=== PATIENT | male | born 1970 | race Caucasian/White ===

== ENCOUNTER 2016-07-17 19:04 | Emergency (ER) | payer OTHER ==
[2016-07-17 19:56] VITALS: BP 115/74; PULSE 85; RESP 20; TEMP 97.9
[2016-07-17] MEDS ORDERED: METOCLOPRAMIDE 10 MG TAB PO STA (20:09)
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
--- NOTE | 2016-07-17 20:50 | CT ---
EXAMINATION TYPE: CT brain wo con DATE OF EXAM: 07/17/2016 8:39 PM COMPARISON: NONE INDICATION: Pt states of dizziness with falls since yesterday. DLP: 1013.0 mGycm, Automated exposure control for dose reduction was used. CONTRAST: None CT of the brain is performed utilizing 3 mm thick sections through the posterior fossa and 3 mm thick sections through the remaining calvarium. Study is performed within 24 hours of arrival to the hosp [facility]. No abnormal hyperdensity is present to suggest an acute intracranial hemorrhage. No mass lesion is evident. No acute infarcts are evident. Ventricles and sulci are appropriate for the patient age. Scattered mucosal thickening is throughout the paranasal sinuses. IMPRESSIONS: 1. No acute intracranial process. 2. Paranasal sinus mucosal thickening.
== END 2016-07-17 21:38 | disposition home or self-care (01) ==
LOC: EC 19:04
DX: R42 Dizziness and giddiness (principal); Z79.899 Other long term (current) drug therapy; Z88.0 Allergy status to penicillin; Z91.041 Radiographic dye allergy status; F17.200 Nicotine dependence, unspecified, uncomplicated
CPT/HCPCS: 70450; 99284

== ENCOUNTER → 2016-08-02 | Outpatient (CLI) | payer OTHER ==
--- NOTE | 2016-08-02 21:19 | MR ---
EXAMINATION TYPE: MR lumbar spine wo con DATE OF EXAM: 08/02/2016 8:32 PM COMPARISON: NONE HISTORY: neck and low back pain ordered WITHOUT contrast TECHNIQUE: T1 and T2 axial and sagittal images of the lumbar spine are submitted. FINDINGS: There is no abnormal signal seen within the visualized spinal cord or paraspinal soft tissu es. At T12-L1 there are severe degenerative disc disease with discogenic marrow changes. No disc herniati on or canal stenosis. Neural foramina patent. At L1-2 there is no disc herniation or canal stenosis. No foraminal encroachment. At L2-3 there is no disc herniation or canal stenosis. No foraminal encroachment At L3-4 there is facet arthropathy and mild disc desiccation. There is no foraminal encroachment or c anal stenosis. No focal herniation. At L4-5 there is facet arthropathy. No disc herniation or canal stenosis. No foraminal encroachment. At L5-S1 there is facet arthropathy but no disc herniation or canal stenosis. No foraminal encroachme nt. IMPRESSION: 1. Degenerative disc disease L3-L4 but no canal stenosis, disc herniation or foraminal encroachment a t any of the visualized levels 2. Severe degenerative disc disease T12-L1. EXAMINATION TYPE: MR cervical spine wo con DATE OF EXAM: 08/02/2016 8:32 PM COMPARISON: 04/08/2015 HISTORY: neck and low back pain T1 sagittal and coronal, T2 sagittal, and gradient echo axial views of the cervical spine are submitt ed. The cranial cervical junction is preserved. There is no abnormal signal seen within the spinal cord or paraspinal soft tissues. C2-C3: No evidence for degenerative disc disease. No disc bulge/herniation or protrusion. No Canal st enosis. Foramina are patent bilaterally. Uncovertebral joint hypertrophy noted bilaterally. C3-C4: Disc bulging capped by spur is stable with a slightly greater left paracentral component. Bila teral facet arthropathy and uncovertebral joint hypertrophy contribute to mild bilateral foraminal en croachment greater on the right. C4-C5: No evidence for degenerative disc disease. No disc bulge/herniation or protrusion. No Canal st enosis. Bilateral facet arthropathy and uncovertebral joint hypertrophy result in mild bilateral fora saroj encroachment C5-C6: Postoperative changes of anterior cervical discectomy and fusion. Anterior fixation plate is i n place as well as intervertebral spacer. Alignment is anatomic. Posterior hypertrophic changes ident ified with effacement of the ventral thecal sac. Thecal sac constriction without canal stenosis. Hype rtrophic changes of the uncinate processes resulting in bilateral foraminal encroachment. C6-C7: Postoperative changes of anterior cervical discectomy and fusion. Intervertebral spacer is in place. Alignment is anatomic. Posterior hypertrophic changes identified with effacement of the ventra l thecal sac. Thecal sac constriction without canal stenosis. Hypertrophic changes of the uncinate pr ocesses resulting in bilateral foraminal encroachment. C7-T1: No evidence for degenerative disc disease. No disc bulge/herniation or protrusion. No Canal st enosis. Foramina are patent bilaterally. Cervical segments are intact. There is normal alignment. Cer vical spinal cord is of normal signal. Craniovertebral junction relationships are within normal limit s. No pathologic enhancement identified. IMPRESSION: 1. Postoperative changes at C5-C6 and C6-C7 consistent with ACDF. Normal postoperative alignment. Hyp ertrophic changes with bilateral foraminal encroachment as discussed. Disc bulging centrally at C6-C7 capped by spur with uncovertebral joint hypertrophy appears stable. 2. Disc bulge at C3-C4 appears slightly greater paracentrally to the left on today's exam with bilate ral foraminal encroachment. Secondary to uncovertebral joint hypertrophy encroachment is greater on t he right.
== END | disposition home or self-care (01) ==
LOC: RADMRIMAIN 19:27
PROVIDERS: ATTEND Nurse Practitioner Acute Care
DX: M51.36 Other intervertebral disc degeneration, lumbar region (principal); M50.21 Other cervical disc displacement, high cervical region; Z98.890 Other specified postprocedural states
CPT/HCPCS: 72141; 72148

== ENCOUNTER 2016-09-07 14:21 | Emergency (ER) | payer OTHER ==
[2016-09-07 14:41] VITALS: BP 121/78; PULSE 67; RESP 16; TEMP 97.7
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
== END 2016-09-07 15:54 | disposition home or self-care (01) ==
LOC: EC 14:21
DX: H05.011 Cellulitis of right orbit (principal); F17.200 Nicotine dependence, unspecified, uncomplicated; Z79.899 Other long term (current) drug therapy; Z91.041 Radiographic dye allergy status; Z88.0 Allergy status to penicillin; Z91.030 Bee allergy status; Z91.013 Allergy to seafood
CPT/HCPCS: 99283

== ENCOUNTER 2016-09-12 18:43 | Emergency (ER) | payer OTHER ==
[2016-09-12] MEDS ORDERED: FAMOTIDINE 20 MG/2 ML VIAL IV STA (19:31)
[2016-09-12] MEDS ORDERED: SODIUM CHLORIDE 0.9% 1,000 ML IV ONE (19:31)
[2016-09-12] MEDS ORDERED: predniSONE 20 MG TAB PO STA (19:31)
[2016-09-12 19:57] LABS: Basophils % (A) 1 %; CH 31.9; CHCM 34.6; Eosinophils # (A) 0.2 k/uL (0-0.7); Eosinophils % (A) 3 %; HCT 47.3 % (39.0-53.0); HDW 2.52; HGB 15.9 gm/dL (13.0-17.5); Luc # (Auto) 0.29; Luc % (Auto) 3; Lymphocytes # (A) 2.3 k/uL (1.0-4.8); Lymphocytes % (A) 27 %; MCH 31.2 pg (25.0-35.0); MCHC 33.7 g/dL (31.0-37.0); MCV 92.8 fL (80.0-100.0); Mean Platelet Volume 7.9; Monocytes # (A) 0.3 k/uL (0-1.0); Monocytes % (A) 4 %; Neutrophils # (A) 5.5 k/uL (1.3-7.7); Neutrophils % (A) 63 %; RDW 13.1 % (11.5-15.5); WBC 8.7 k/uL (3.8-10.6); WBC (Perox) 8.58
[2016-09-12 20:06] LABS: ALT 34 U/L (21-72); AST 23 U/L (17-59); Alkaline Phosphatase 78 U/L (38-126); Anion Gap 10 mmol/L; Blood Urea Nitrogen 13 mg/dL (9-20); Calcium 9.5 mg/dL (8.4-10.2); Carbon Dioxide 26 mmol/L (22-30); Chloride 105 mmol/L (98-107); Glucose 85 mg/dL (74-99); Non-African American GFR(MDRD) >60 (>60 ml/min/1.73 sqM); Potassium 4.4 mmol/L (3.5-5.1); Sodium 141 mmol/L (137-145); Total Bilirubin 0.5 mg/dL (0.2-1.3); Total Protein 7.1 g/dL (6.3-8.2)
--- NOTE | 2016-09-12 20:20 | CT ---
EXAMINATION TYPE: CT facial bones wo con DATE OF EXAM: 09/12/2016 8:09 PM COMPARISON: CT brain July 17, 2016 HISTORY: Pt states of facial swelling, No known injury. Major swelling to orbital area. CT DLP: 697.6 mGycm Automated exposure control for dose reduction was used. TECHNIQUE: CT scan of the facial bones is performed without contrast, axial images are obtained, sean nal reformatted images are also reviewed. FINDINGS: There is patchy ill-defined fluid in the right maxillary sinus. Remainder paranasal sinuses are clear. There is no acute facial bone fracture or dislocation seen. The globes are intact bilaterally. Intrac onal fat is preserved bilaterally. Visualized portion of brain parenchyma is unremarkable. No well-fo rmed fluid collection or abscess is seen. IMPRESSION: Acute right maxillary sinusitis otherwise unremarkable study.
[2016-09-12] MEDS ORDERED: FLUORESCEIN STRIPS 1 MG STRIP BOTH EYES ONE (20:57)
[2016-09-12] MEDS ORDERED: PROPARACAINE 0.5% OPHTH DROPS 15 ML BTL BOTH EYES STA (20:57)
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
[2016-09-12 21:28] VITALS: BP 127/82; PULSE 62; RESP 18; TEMP 97
== END 2016-09-12 21:28 | disposition home or self-care (01) ==
LOC: EC 18:43
DX: J30.9 Allergic rhinitis, unspecified (principal); J01.00 Acute maxillary sinusitis, unspecified; L50.9 Urticaria, unspecified; Z88.0 Allergy status to penicillin; Z91.030 Bee allergy status; Z91.041 Radiographic dye allergy status; Z91.013 Allergy to seafood; F17.200 Nicotine dependence, unspecified, uncomplicated
CPT/HCPCS: 96374; 96361; 99284; 36415; 80053; 85025; 70486; J7512

== ENCOUNTER 2016-10-10 16:16 | Emergency (ER) | payer OTHER ==
[2016-10-10 16:43] VITALS: PULSE 70
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
--- NOTE | 2016-10-10 17:48 | XR ---
EXAMINATION TYPE: XR cervical spine comp DATE OF EXAM: 10/10/2016 5:43 PM COMPARISON: 10/31/2014 HISTORY: Neck pain TECHNIQUE: 5 views FINDINGS: Cervical vertebra have normal alignment. There is anterior fusion at C5-6. There is a disc prosthesis at C6-7. Posterior elements are intact. Neural foramina are fairly well maintained. Atlant oaxial facet joint is normal. IMPRESSION: Previous surgery. No acute abnormality. No change.
[2016-10-10 18:20] VITALS: BP 120/70; RESP 16; TEMP 97.8
== END 2016-10-10 18:19 | disposition home or self-care (01) ==
LOC: EC 16:16
DX: M54.2 Cervicalgia (principal); R42 Dizziness and giddiness; F17.200 Nicotine dependence, unspecified, uncomplicated; Z79.899 Other long term (current) drug therapy; Z88.0 Allergy status to penicillin; Z91.013 Allergy to seafood; Z91.030 Bee allergy status; Z91.038 Other insect allergy status; Z91.041 Radiographic dye allergy status; Z98.890 Other specified postprocedural states
CPT/HCPCS: 72050; 99283

== ENCOUNTER 2016-10-13 18:06 | Emergency (ER) | payer OTHER ==
[2016-10-13 19:27] VITALS: RESP 18
[2016-10-13] MEDS ORDERED: FAMOTIDINE 20 MG/2 ML VIAL IV STA (20:20)
[2016-10-13] MEDS ORDERED: diphenhydrAMINE 50 MG/ML 1 ML VIAL IVP STA (20:20)
[2016-10-13] MEDS ORDERED: methylPREDNISolone SOD SUCCI 125 MG/2 ML VIAL IV STA (20:20)
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
[2016-10-13] MEDS ORDERED: HYDROcodone/APAP 5-325MG 1 EACH TAB PO STA (20:42)
[2016-10-13 22:12] VITALS: BP 119/68; PULSE 63; TEMP 97.9
== END 2016-10-13 22:12 | disposition home or self-care (01) ==
LOC: EC 18:06
DX: R20.0 Anesthesia of skin (principal); R60.9 Edema, unspecified; T50.995A Adverse effect of other drugs, medicaments and biological substances, initial encounter; F17.200 Nicotine dependence, unspecified, uncomplicated; Z79.899 Other long term (current) drug therapy; Z91.041 Radiographic dye allergy status; Z88.8 Allergy status to other drugs, medicaments and biological substances; Z88.0 Allergy status to penicillin; Z91.013 Allergy to seafood; Z91.030 Bee allergy status
CPT/HCPCS: 99283; 96374; 96375 ×2; J1200; J2930

== ENCOUNTER → 2016-11-05 | Outpatient (CLI) | payer OTHER ==
--- NOTE | 2016-11-05 13:10 | CT ---
EXAMINATION TYPE: CT cervical spine wo con DATE OF EXAM: 11/05/2016 12:44 PM COMPARISON: Previous study dated 11/26/2013. HISTORY: Post procedure pain and swelling-left side neck/shoulder swelling CT DLP: 514.6 mGycm Automated exposure control for dose reduction was used. TECHNIQUE: CT scan of the cervical spine is obtained without contrast, axial images are obtained, sa gittal and coronal reformatted images are also reviewed. FINDINGS: There are mild1 emphysematous changes throughout the visualized portions of the lungs. There is mucoperiosteal thickening involving the right maxillary sinus. Prevertebral soft tissues lazaro ear unremarkable. There is been an ACDF at C5-6 and vascular fusion at C6-7. This appears unchanged from previous. Alig nment remains normal. Atlantoaxial relationships are normal. No definite discal protrusion is seen. T he uncovertebral joints at C5-6 are fused. There is no significant facet arthropathy. There is some shotty posterior triangle and deep cervical adenopathy. There are no pathologically enl arged lymph nodes. There is stranding in the soft tissues posteriorly on the left as well as posterior laterally on the left. No hematoma or abscess is seen. IMPRESSION: 1. POSTSURGICAL CHANGE. 2. SHOTTY CERVICAL ADENOPATHY. 3. SOFT TISSUE STRANDING IN THE POSTERIOR LATERAL AND POSTERIOR ASPECT OF THE NECK.
== END | disposition home or self-care (01) ==
LOC: RADCTMAIN 12:21
PROVIDERS: ATTEND Physician Assistant
DX: R59.0 Localized enlarged lymph nodes (principal); M79.89 Other specified soft tissue disorders; G89.18 Other acute postprocedural pain; Z88.0 Allergy status to penicillin; Z91.013 Allergy to seafood
CPT/HCPCS: 72125

== ENCOUNTER 2017-09-19 16:31 | Inpatient (IN) | payer MEDICAID, OTHER ==
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
[2017-09-19 17:35] LABS: Amphetamine Screen,Urine Not Detected (NotDetected); Barbiturate Screen,Urine Not Detected (NotDetected); Benzodiazepines Screen,Urine Not Detected (NotDetected); Cocaine Screen,Urine Not Detected (NotDetected); Methadone Screen, Urine Not Detected (NotDetected); Opiate Screen,Urine Not Detected (NotDetected); Oxycodone Screen, Urine Not Detected (NotDetected); Phencyclidine Screen,Urine Not Detected (NotDetected); Tricyclic Antidepressant,Urine Not Detected (NotDetected); Urn Cannabinoid Scrn Detected (NotDetected)
[2017-09-19] MEDS ORDERED: HYDROcodone/APAP 5-325MG 1 EACH TAB PO STA ×2 (19:38→21:21)
[2017-09-19] MEDS ORDERED: ACETAMINOPHEN TAB 325 MG TAB PO PRN (19:51)
[2017-09-19] MEDS ORDERED: MAGNESIUM HYDROXIDE 2,400 MG/10 ML CUP PO PRN (19:51)
[2017-09-19] MEDS: LORazepam 1 MG TAB PO PRN (21:12)
[2017-09-19 21:49] VITALS: BMI 24.3
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
[2017-09-20] MEDS: LORazepam 1 MG TAB PO PRN ×2 (08:10→17:37)
[2017-09-20] MEDS ORDERED: ZIPRASIDONE 20 MG VIAL IM ONE (09:02)
[2017-09-20] MEDS ORDERED: BACITRACIN OINT 1 EACH PACKET TOPICAL ONE (09:32)
[2017-09-20] MEDS ORDERED: ARIPiprazole 5 MG TAB PO SCH (09:45)
[2017-09-20] MEDS: BACITRACIN OINT 1 EACH PACKET TOPICAL SCH ×3 (09:48→21:34)
[2017-09-20] MEDS: HYDROcodone/APAP 5-325MG 1 EACH TAB PO PRN ×2 (09:49→17:37)
[2017-09-20] MEDS: NICOTINE 14MG/24HR PATCH TRANSDERM SCH (09:52)
[2017-09-20] MEDS: ZIPRASIDONE 20 MG VIAL IM PRN ×2 (11:04→18:31)
[2017-09-20 11:15] LABS: Basophils % (A) 0 %; Eosinophils # (A) 0.1 k/uL (0-0.7); Eosinophils % (A) 1 %; HCT 48.5 % (39.0-53.0); HGB 15.9 gm/dL (13.0-17.5); Lymphocytes # (A) 2.4 k/uL (1.0-4.8); Lymphocytes % (A) 21 %; MCH 30.2 pg (25.0-35.0); MCHC 32.8 g/dL (31.0-37.0); MCV 92.1 fL (80.0-100.0); Mean Platelet Volume 7.5; Monocytes # (A) 0.6 k/uL (0-1.0); Monocytes % (A) 6 %; Neutrophils # (A) 7.8 k/uL (1.3-7.7); Neutrophils % (A) 70 %; Platelet Count 185 k/uL (150-450); RBC 5.26 m/uL (4.30-5.90); RDW 12.5 % (11.5-15.5); WBC 11.2 k/uL (3.8-10.6)
[2017-09-20 11:41] LABS: ALT 27 U/L (21-72); AST 21 U/L (17-59); Albumin 4.5 g/dL (3.5-5.0); Alkaline Phosphatase 69 U/L (38-126); Anion Gap 14 mmol/L; Blood Urea Nitrogen 22 mg/dL (9-20); Calcium 9.8 mg/dL (8.4-10.2); Carbon Dioxide 26 mmol/L (22-30); Chloride 102 mmol/L (98-107); Glucose 83 mg/dL (74-99); Potassium 4.3 mmol/L (3.5-5.1); Sodium 142 mmol/L (137-145); Total Bilirubin 0.7 mg/dL (0.2-1.3); Total Protein 7.3 g/dL (6.3-8.2)
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
[2017-09-20] MEDS ORDERED: HALOPERIDOL LACTATE 5 MG/ML 1 ML VIAL IM ONE (21:53)
[2017-09-20] MEDS ORDERED: HALOPERIDOL LACTATE 5 MG/ML 1 ML VIAL ONE (21:56)
[2017-09-21] MEDS: NICOTINE 14MG/24HR PATCH TRANSDERM SCH (08:19)
[2017-09-21] MEDS: HYDROcodone/APAP 5-325MG 1 EACH TAB PO PRN ×2 (08:20→19:40)
[2017-09-21] MEDS: DIVALPROEX 250 MG TABLET.DR PO SCH ×2 (08:41→20:44)
[2017-09-21] MEDS: ARIPiprazole 10 MG TAB PO SCH (08:41)
[2017-09-21] MEDS: BACITRACIN OINT 1 EACH PACKET TOPICAL SCH ×3 (08:42→20:45)
[2017-09-21] MEDS ORDERED: ZIPRASIDONE 20 MG VIAL IM ONE (10:56)
[2017-09-21] MEDS: ZIPRASIDONE 20 MG VIAL IM PRN ×2 (11:06→22:42)
--- NOTE | 2017-09-21 11:17 | P.PN ---
Progress Note - Text Progress Note Date: 09/21/17 Interval History: Patient is a 46-year-old male who was seen today, he reports that he is now going to divorce his because she is return to live with her stepfather in [place] and states that she is returning to dancing. Patient states that they moved out with his sister to get away from the life that they had when she was dancing. Patient states that she dislikes where they were living and complained every night. Patient states that he slept about 4 hours last night and was able to sleep on and off after that. Patient states that his right hand is sore but he is able to move it and on exam is not swollen or reddened and so no further workup will be obtained at this time. Patient states that he is no longer feeling suicidal but remains angry, denied that he had threatened to kill his . Patient states that he was hearing his daughter talk to him at night but has not had that occur here, patient does have nightmares about past events and states that he does occasionally have flashbacks. Mental Status: Appearance/Attitude: Patient is appropriately dressed, makes eye contact and is cooperative Behavior: Patient did not display any psychomotor agitation or retardation during the interview however there've been episodes where he continues to yell and swear on the phone, apparently hitting the wall and requesting IM medication Speech/Language: Patient's speech is spontaneous and of normal volume and rhythm , he is coherent Thought Process: Patient is goal-directed there is no evidence of loose association or flight of ideas the patient is focused on his in their relationship Thought Content: Patient denies any current auditory or visual hallucinations, states that he does continue to have nightmares about past trauma, no delusions or paranoid ideation were elicited and he denied feeling paranoid. Patient states that he continues to have racing thoughts jumping from one idea to another, patient states that he slept about 4 hours last night and then was up and down for the rest of the evening. Patient reports his appetite is good. Suicidal/Homicidal Ideation: Patient denies any current suicidal ideation and denies making threats to his stating that "if I had threatened to kill her she would've called the police" Sensorium/Cognition: Patient is alert and oriented to person, place, and time and his recent and remote memory are grossly intact. Mood/Affect: Patient's mood remains labile and his affect is appropriate to his mood Insight/Judgment: Patient's insight and judgment are limited Assessment: Patient continues to contact family/ on the phone and last evening was yelling and screaming using obscenities and needs redirection and as needed injectable medication. In was reported in team treatment meeting that the patient's interactions during group therapy were inappropriate, at times making threats regarding his , making inappropriate statements and needs redirection. Patient reports that he continues to have racing thoughts, is focused on his and her leaving with the kids and living with her stepfather. Patient remains impulsive and labile, easily irritated. Plan: Patient and I discussed this morning increasing his Abilify due to his needing 3 as needed injections yesterday, will increase to Abilify 10 mg in the morning. Patient and I again discussed mood stabilizers and due to his aggressive behavior I suggested we restart Depakote, patient was reluctant secondary to his reporting sexual side effects from it but was agreeable to restart it. Patient will begin Depakote 250 mg twice a day. Patient was also begun on prazosin 1 mg at bedtime to target his nightmares. Patient's Abilify and Depakote will be titrated to affective levels, I encouraged the patient to not continue to contact family on the phone. Patient continues to require hospitalization to stabilize his mood. Patient states his right hand is sore, on exam there is no evidence of swelling in patient reports he is able to move it without difficulty, no x-ray will be obtained at this time.
[2017-09-21 16:35] LABS: Appearance,Urine Clear (Clear); Bilirubin,Urine Negative (Negative); Blood,Urine Negative (Negative); Color,Urine Yellow; Glucose,Urine (UA) Negative (Negative); Ketones,Urine Trace (Negative); Leukocyte Esterase,Urine Negative (Negative); Nitrite,Urine Negative (Negative); PH, Urine 6.5 (5.0-8.0); Protein,Urine Negative (Negative); Specific Gravity,Urine 1.011 (1.001-1.035); Urobilinogen,Urine <2.0 mg/dL (<2.0)
[2017-09-21] MEDS: PRAZOSIN 1 MG CAP PO SCH (20:44)
[2017-09-21] MEDS: LORazepam 1 MG TAB PO PRN (20:46)
[2017-09-21] MEDS: MAG HYDROX/AL HYDROX/SIMETH 30 ML CUP PO PRN (21:00)
[2017-09-22] MEDS: NICOTINE 14MG/24HR PATCH TRANSDERM SCH (08:24)
[2017-09-22] MEDS: BACITRACIN OINT 1 EACH PACKET TOPICAL SCH ×3 (08:24→22:07)
[2017-09-22] MEDS: ARIPiprazole 10 MG TAB PO SCH (08:24)
[2017-09-22] MEDS: DIVALPROEX 250 MG TABLET.DR PO SCH (08:25)
[2017-09-22] MEDS: HYDROcodone/APAP 5-325MG 1 EACH TAB PO PRN ×2 (08:25→16:32)
[2017-09-22] MEDS: LORazepam 1 MG TAB PO PRN ×2 (08:25→16:32)
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
[2017-09-22] MEDS ORDERED: PANTOPRAZOLE 40 MG TABLET PO STA (12:26)
[2017-09-22] MEDS: PANTOPRAZOLE 40 MG TABLET PO SCH (16:31)
[2017-09-22] MEDS: DIVALPROEX 500 MG TABLET.DR PO SCH (20:25)
[2017-09-22] MEDS: PRAZOSIN 1 MG CAP PO SCH (20:26)
[2017-09-23] MEDS ORDERED: ZIPRASIDONE 20 MG VIAL IM ONE (00:50)
[2017-09-23] MEDS: LORazepam 2 MG/ML INJ IM PRN ×2 (00:57→22:58)
[2017-09-23] MEDS: ZIPRASIDONE 20 MG VIAL IM PRN ×2 (00:57→22:57)
[2017-09-23] MEDS: NICOTINE 14MG/24HR PATCH TRANSDERM SCH (08:34)
[2017-09-23] MEDS: ARIPiprazole 10 MG TAB PO SCH (08:35)
[2017-09-23] MEDS: PANTOPRAZOLE 40 MG TABLET PO SCH ×2 (08:35→18:04)
[2017-09-23] MEDS: BACITRACIN OINT 1 EACH PACKET TOPICAL SCH ×3 (08:35→23:09)
[2017-09-23] MEDS: DIVALPROEX 500 MG TABLET.DR PO SCH (08:35)
[2017-09-23] MEDS: LORazepam 1 MG TAB PO PRN ×2 (08:36→12:39)
[2017-09-23] MEDS: HYDROcodone/APAP 5-325MG 1 EACH TAB PO PRN ×3 (08:36→21:12)
--- NOTE | 2017-09-23 12:35 | P.PN ---
Progress Note - Text Progress Note Date: 09/23/17 Interval History: Patient is a 46-year-old male who was seen this morning and he states that he slept only 4 hours last night. Patient received medication as needed last evening around 1 AM. Patient states that he was talking to his on the phone and was yelling at her about her stepfather. Patient states that he is still angry and that is the only time he was yelling yesterday. He reports he continues to have racing thoughts. He felt that the medication last night did help him. Patient states he still angry at his and resentful to her because 3 years ago she had lied to him about just dancing and actually was working as a prostitute this is when they were both using street drugs. 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 Patient reports no side effects from his medication. He states that he did not have any nightmares last evening. Mental Status: Appearance/Attitude: Patient is appropriately dressed, makes good eye contact and is cooperative. However patient got upset at the end of the interview when I told him he was not going to be discharged today or tomorrow and demanded that he see someone from the pain clinic and orthopedic surgeon to discuss his concerns. Patient when he was told that he was not going to have either of those consultations while an inpatient got up and left the interview room. Behavior: Patient does not display any psychomotor retardation but remains slightly irritable and has continued to have episodes on the unit of yelling, using profanity when on the phone Speech/Language: Patient's speech is spontaneous and of normal volume and rhythm and he is coherent. Thought Process: Patient is goal-directed there is no evidence of loose association or flight of ideas he is not circumstantial or tangential Thought Content: Patient denies auditory or visual hallucinations no delusions or paranoid ideation were elicited. Patient reports that he continues to have racing thoughts, continues to feel angry and did yell again on the phone last evening with his . He states that otherwise the anger is still there but not as close to the surface. 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 Patient states that he slept about 4 hours last night he denied any nightmares. Patient's appetite is good. Patient continues to be focused on his pain demanding consultation from the pain clinic and orthopedic surgeon as well as an increase in his [place]. Suicidal/Homicidal Ideation: Patient denies any current suicidal or homicidal ideation. Sensorium/Cognition: Patient is alert and oriented to person, place, and time and his recent and remote memory are grossly intact. Mood/Affect: Patient's mood remains irritable and his affect is appropriate to his mood. Insight/Judgment: Patient's insight and judgment are fair Assessment: Patient continues to have episodes of yelling, using profanity directed at his when she calls, he states due to her living with her stepfather and prior resentments that he has. Patient has been attending groups and activities and has been more appropriate in them. Patient demands to have his [place] increased as I am not going to consult a pain specialist or an orthopedic surgeon and again discussed that he could get referrals as an outpatient. Patient reports continued racing thoughts, sleeping only 4 hours last night but no reported nightmares. Patient remains irritable and left the interview room when I would not meet his demands, regarding his pain or that he was not going to be discharged today or tomorrow. Patient's was contacted by social work and duty to warn was done. Plan: Patient's Abilify will be increased to 15 mg and his Depakote will be increased to 500 mg in the morning and 750 mg at bedtime to target his bipolar disorder. Patient will continue on prazosin 1 mg at bedtime to target his nightmares. Patient continues to require hospitalization to stabilize his mood. I discussed with the patient that his mood needs to be under better control, he needs to be sleeping and minimum of 6 hours a night and not using any as needed medication for agitation/yelling, screaming before he can be discharged.
[2017-09-23] MEDS: NICOTINE POLACRILEX 2 MG GUM BUCCAL PRN ×2 (16:36→21:12)
[2017-09-23] MEDS: IBUPROFEN 400 MG TAB PO PRN (16:36)
[2017-09-23] MEDS: PRAZOSIN 1 MG CAP PO SCH (21:11)
[2017-09-23] MEDS: DIVALPROEX 250 MG TABLET.DR PO SCH (21:11)
[2017-09-24] MEDS: PANTOPRAZOLE 40 MG TABLET PO SCH ×2 (08:22→16:53)
[2017-09-24] MEDS: DIVALPROEX 500 MG TABLET.DR PO SCH (08:23)
[2017-09-24] MEDS: ARIPiprazole 15 MG TAB PO SCH (08:23)
[2017-09-24] MEDS: HYDROcodone/APAP 5-325MG 1 EACH TAB PO PRN ×3 (08:24→22:33)
[2017-09-24] MEDS: NICOTINE POLACRILEX 2 MG GUM BUCCAL PRN ×3 (08:26→23:41)
[2017-09-24] MEDS: BACITRACIN OINT 1 EACH PACKET TOPICAL SCH ×3 (09:25→21:14)
[2017-09-24] MEDS: LORazepam 1 MG TAB PO PRN ×2 (09:26→22:31)
--- NOTE | 2017-09-24 20:39 | P.PN ---
Progress Note - Text Progress Note Date: 09/24/17 Patient was seen today. He reports he is getting better. He became tearful during the interview talking about the recent of his 23 year old daughter. He stated he was angry and agitated during the initial days of his admission. He states his current medications have been helping him to stay calm. He also stated the pain medications have been helping him to stay calm also. He states he wants to be referred to a neurologist and an orthopedic surgeon before his discharge. He stated he wants to get Xray of his left knee to see what is going on with his meniscus. He claims to have suffered multiple injuries years ago due to work related accident. He says he is no longer suicidal. He says he has other children who he needs to care for. He also states he is no longer hearing his daughters voices. He reports sleeping only for three hours at night and claims he had always been like that. He reports fair appetite. He denies current symptoms of lupis or anxiety. He reports attending and participating in all unit activities. He states his nightmares are not as bothersome as before. Mental status exam Patient is 46 year old male. Both his hands are covered with tattoos. He is dressed appropriately. He is pleasant and cooperative. He maintains good eye contact. His speech and thought process are goal directed. His mood is euthymic and affect constricted. He denies auditory or visual halluciantions. He is not paranoid and did not appear delusional. He is alert and oriented to time place and person. His insight and judgment are fair and improving. Assessmnet Responded well to his current medication regimen Plan Continue his current medications Monitor for symptoms
[2017-09-24] MEDS: DIVALPROEX 250 MG TABLET.DR PO SCH (21:14)
[2017-09-24] MEDS: PRAZOSIN 1 MG CAP PO SCH (21:14)
[2017-09-24] MEDS ORDERED: diphenhydrAMINE 25 MG CAP PO STA (21:28)
[2017-09-25] MEDS: IBUPROFEN 400 MG TAB PO PRN (04:12)
[2017-09-25] MEDS: HYDROcodone/APAP 5-325MG 1 EACH TAB PO PRN ×3 (05:54→22:26)
[2017-09-25] MEDS: LORazepam 1 MG TAB PO PRN ×3 (05:55→22:25)
[2017-09-25] MEDS: PANTOPRAZOLE 40 MG TABLET PO SCH ×2 (08:25→16:55)
[2017-09-25] MEDS: DIVALPROEX 500 MG TABLET.DR PO SCH (08:25)
[2017-09-25] MEDS: ARIPiprazole 15 MG TAB PO SCH (08:25)
[2017-09-25] MEDS: BACITRACIN OINT 1 EACH PACKET TOPICAL SCH ×3 (08:26→19:58)
[2017-09-25] MEDS: NICOTINE POLACRILEX 2 MG GUM BUCCAL PRN ×3 (08:27→19:58)
[2017-09-25] MEDS: MAG HYDROX/AL HYDROX/SIMETH 30 ML CUP PO PRN (11:47)
--- NOTE | 2017-09-25 19:03 | P.PN ---
Progress Note - Text Progress Note Date: 09/25/17 Patient was seen today. He reports things are getting better and claims medications are helping him. He reports interrupted sleep yesterday and attributes it to being noisy and other patients yelling and screaming on the unit. He reports in total he slept for 6 hours. He claims he hasnt had any night solis over the past two days. He claims to have talked to his and says she is frustrated and he is frustrated. He however says they still love each other. He reports going to all his groups therapies. He denies current symptoms of psychosis, lupis and depression. Mental status exam Patient is 46 year old male. He is dressed appropriately. He is pleasant and cooperative. He maintains good eye contact. His speech and thought process are goal directed. His mood is euthymic and affect constricted. He denies auditory or visual halluciantions. He is not paranoid and did not appear delusional. He is alert and oriented to time place and person. His insight and judgment are fair and improving. Assessmnet Reports significant improvement of his symptoms with his current medication regimen No behavioral probelms on the unit Plan Continue Abilify 15 mg Continue Depakote 500 mg in the morning and 750 mg at bedtime. Continue on prazosin 1 mg at bedtime . Monitor for symptoms
[2017-09-25] MEDS: DIVALPROEX 250 MG TABLET.DR PO SCH (21:16)
[2017-09-25] MEDS: PRAZOSIN 1 MG CAP PO SCH (21:17)
[2017-09-26 06:48] VITALS: RESP 16
[2017-09-26] MEDS: PANTOPRAZOLE 40 MG TABLET PO SCH ×2 (08:22→17:08)
[2017-09-26] MEDS: HYDROcodone/APAP 5-325MG 1 EACH TAB PO PRN ×2 (08:22→20:10)
[2017-09-26] MEDS: DIVALPROEX 500 MG TABLET.DR PO SCH (08:22)
[2017-09-26] MEDS: LORazepam 1 MG TAB PO PRN ×2 (08:22→18:40)
[2017-09-26] MEDS: ARIPiprazole 15 MG TAB PO SCH (08:22)
[2017-09-26] MEDS: NICOTINE POLACRILEX 2 MG GUM BUCCAL PRN ×2 (09:12→13:16)
[2017-09-26] MEDS: BACITRACIN OINT 1 EACH PACKET TOPICAL SCH ×2 (09:26→15:16)
[2017-09-26 10:02] LABS: HGB 15.7 gm/dL (13.0-17.5); MCH 31.5 pg (25.0-35.0); MCHC 34.2 g/dL (31.0-37.0); MCV 92.1 fL (80.0-100.0); Mean Platelet Volume 6.8; Platelet Count 160 k/uL (150-450); RDW 12.2 % (11.5-15.5); WBC 8.9 k/uL (3.8-10.6)
[2017-09-26 10:19] LABS: Albumin 4.3 g/dL (3.5-5.0); Bilirubin, Delta 0.3 mg/dL (0.0-0.2); Bilirubin,Unconjugated 0.2 mg/dL (0.0-1.1); Total Bilirubin 0.5 mg/dL (0.2-1.3); Total Protein 6.8 g/dL (6.3-8.2)
--- NOTE | 2017-09-26 12:51 | P.PN ---
Progress Note - Text Progress Note Date: 09/26/17 Interval History: Patient is a 46-year-old male who was seen today and he reports that he is sleeping about 6 hours a night, no longer having nightmares. Patient states that he continues to have episodes where he becomes upset and angry and required as needed medication. Patient states that he still has no idea where he will live on discharge. Patient reports that he is much less angry and better able to control his anger currently. He states that he is not having any suicidal thoughts and reports that he continues to think about his daughter who in May and becomes quite tearful and upset when discussing her. Patient states that he continues to miss her greatly. Patient reports no side effects from the medication although we states he is feeling slightly groggy. Mental Status: Appearance/Attitude: Patient is appropriately dressed, makes good eye contact and is cooperative. Behavior: Patient does not exhibit any psychomotor agitation or retardation. Speech/Language: Patient's speech is spontaneous, normal volume and rhythm and he is coherent. Thought Process: Patient is goal-directed there is no evidence of loose association or flight of ideas. Thought Content: Patient denies any auditory or visual hallucinations and no delusions or paranoid ideation were elicited. Patient states that he still becomes angry but is better able to control it, states that he is no idea where he is going to live because his will not return to live with him and he will not live with her stepfather. Patient states that he is sleeping without nightmares. Patient is eating well. He reports no side effects from the medication. Patient states that he still thinks about his daughter who in May and states that he misses her greatly and is quite tearful when discussing her. Suicidal/Homicidal Ideation: Patient denies any current suicidal or homicidal ideation. Sensorium/Cognition: Patient is alert and oriented to person, place, and time and his recent and remote memory are grossly intact Mood/Affect: Patient's mood is more stable, he still has periods of sadness regarding his daughter's and his affect is appropriate to his mood Insight/Judgment: Patient's insight and judgment are fair. Assessment: Patient presents today having used as needed medication over the weekend on several occasions when he is becoming upset. Patient states that he feels better able to control his anger when he does get angry. Patient states that he doesn't have any idea where he is going to live on discharge as he cannot live with his and does not want to live with either his mother or sister. Patient states that he is not having any nightmares and is sleeping about 6 hours a night. Patient states that his anger persists but he is better able to control it. He has not made any threatening statements while on the unit recently regarding this 's stepfather, his . Patient reports feeling slightly sleepy during the day. Repeat CBC and hepatic function revealedslightly elevated delta bilirubin otherwise within normal limits. Plan: Patient will continue on Abilify 15 mg in the morning, Depakote 500 mg in the morning 7 or 50 mg at bedtime and prazosin 1 mg at bedtime. Patient and I discussed discharge tomorrow, patient was encouraged to contact prior friends as he feels living in [facility] [place] would be better for him.
[2017-09-26] MEDS: DIVALPROEX 250 MG TABLET.DR PO SCH (20:10)
[2017-09-26] MEDS: PRAZOSIN 1 MG CAP PO SCH (20:10)
[2017-09-26] MEDS: ZIPRASIDONE 20 MG VIAL IM PRN (22:30)
[2017-09-27 06:34] VITALS: BP 103/67; PULSE 81; TEMP 97.6
[2017-09-27] MEDS: DIVALPROEX 500 MG TABLET.DR PO SCH (08:21)
[2017-09-27] MEDS: PANTOPRAZOLE 40 MG TABLET PO SCH (08:21)
[2017-09-27] MEDS: ARIPiprazole 15 MG TAB PO SCH (08:21)
[2017-09-27] MEDS: HYDROcodone/APAP 5-325MG 1 EACH TAB PO PRN (08:22)
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
== END 2017-09-27 10:30 | disposition home or self-care (01) | DRG 885 ==
LOC: EC 16:31 → 3MHU 19:40
PROVIDERS: ADMIT Psychiatry & Neurology Psychiatry; ATTEND Psychiatry & Neurology Psychiatry
DX: F31.5 Bipolar disorder, current episode depressed, severe, with psychotic features (principal); R45.851 Suicidal ideations; F12.90 Cannabis use, unspecified, uncomplicated; F17.200 Nicotine dependence, unspecified, uncomplicated; G89.29 Other chronic pain; Z91.410 Personal history of adult physical and sexual abuse; Z88.3 Allergy status to other anti-infective agents; Z91.030 Bee allergy status; Z91.041 Radiographic dye allergy status; Z88.0 Allergy status to penicillin; Z91.013 Allergy to seafood; Z98.1 Arthrodesis status; Z87.820 Personal history of traumatic brain injury; Z81.1 Family history of alcohol abuse and dependence; Z81.3 Family history of other psychoactive substance abuse and dependence
CPT/HCPCS: 80053; 80076; 80306; 81003; 82075; 82533; 84443; 85025; 85027; 99285

== ENCOUNTER 2025-01-14 19:39 | Emergency (ER) | payer OTHER ==
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
[2025-01-14 21:05] VITALS: BP 147/103; PULSE 56; RESP 17; TEMP 97.6
== END 2025-01-14 21:06 | disposition home or self-care (01) ==
LOC: EC 19:39
DX: S06.0XAA Concussion with loss of consciousness status unknown, initial encounter (principal); F17.200 Nicotine dependence, unspecified, uncomplicated; Z88.0 Allergy status to penicillin; Z91.030 Bee allergy status; Z91.041 Radiographic dye allergy status; Z88.8 Allergy status to other drugs, medicaments and biological substances; V86.55XA Driver of 3- or 4- wheeled all-terrain vehicle (ATV) injured in nontraffic accident, initial encounter
CPT/HCPCS: 70450; 72125; 99284